=== PATIENT | female | born 1975 | race Hispanic/Latino ===

== ENCOUNTER → 2024-06-11 | Day surgery (SDC) | payer OTHER ==
[~2024-06-11] MED LIST: ACETAMINOPHEN 1000 MG/100 ML 100 ML IV ONE; ALENDRONATE SOD70 MG PO; CELEBREX200 MG PO; CIMZIA400 MG IM; COREG3.125 MG PO; CYMBALTA30 MG PO; DEXAMETHASONE SOD PHOS INJ 4 MG/ML SDV ONE; EPINEPHRINE HCL 1:1000 1ML 1 MG/ML AMP ONE; FAMOTIDINE 20 MG/2 ML VIAL IV ONE; FENTANYL CITRATE/PF 100MCG/2 ML INJ ONE; FOLIC ACID0.4 MG PO; LIDOCAINE 1% W/EPINEPHRINE 20 ML VIAL ONE; LIDOCAINE HCL 2% LOCAL INJ 5 ML SDV VIAL INJ ONE; LYRICA150 MG PO; MIDAZOLAM HCL 2 MG/2 ML VIAL ONE; ONDANSETRON HCL INJ 2MG/ML 2ML 2 MG/ML VIAL ONE; PANTOPRAZOLE SO40 MG PO; PRAVASTATIN SOD40 MG PO; PREVASTATIN PO; PROPOFOL IV EMULSION 10 MG/ML 20 ML VIAL ONE; ROCURONIUM BROMIDE 1 ML IV ONE; ROPINIROLE HCL0.5 MG PO; TRELEGY ELLIPT1 EACH INH; VITAMIN B COMP1 EAC5 PO; VITAMIN D250 MCG PO; WOMENS PROBIOTIC PO; [UNRECOGNIZED DRUG - OTHER] PO
[2024-06-11 09:18] LABS: BASOPHILS % 0.2 % (0.0-1.0); EOSINOPHILS % 0.4 % (0.0-6.0); HEMATOCRIT 41.6 % (34.2-44.1); HEMOGLOBIN 13.8 g/dL (12.0-16.0); LYMPHOCYTES # (AUTO) 2.2 (1.0-3.2); LYMPHOCYTES % 21.2 % (18.0-39.1); MEAN CORPUSCULAR HEMOGLOBIN 30.9 pg (28-32); MEAN CORPUSCULAR HGB CONC 33.2 g/dL (31-35); MEAN CORPUSCULAR VOLUME 93.3 fL (81-99); MONOCYTES # (AUTO) 0.7 (0.2-0.8); MONOCYTES % 6.5 % (4.4-11.3); NEUTROPHILS # (AUTO) 7.4 (2.1-6.9); NEUTROPHILS % 71.3 % (38.7-80.0); PLATELET COUNT 327 x10e3/uL (140-360); RED BLOOD COUNT 4.46 x10e6/uL (3.6-5.1); RED CELL DISTRIBUTION WIDTH 14.3 % (11.7-14.4); WHITE BLOOD COUNT 10.32 x10e3/uL (4.8-10.8)
[2024-06-11] MEDS: LACTATED RINGER'S 1,000 ML ONE (09:51)
[2024-06-11 10:16] LABS: ANION GAP 13.7 mmol/L (8-16); CALCIUM 9.5 mg/dL (8.4-10.2); CREATININE, SERUM 0.71 mg/dL (0.57-1.11); POTASSIUM 3.7 mmol/L (3.5-5.1)
[2024-06-11] MEDS: FENTANYL CITRATE/PF 100MCG/2 ML INJ ONE (13:24)
[2024-06-11 14:15] VITALS: BP 112/70; PULSE 63; RESP 16; O2SAT 99
== END | disposition home or self-care (01) ==
LOC: OR 08:43
PROVIDERS: ATTEND Otolaryngology Otolaryngology/Facial Plastic Surgery
DX: J32.0 Chronic maxillary sinusitis (principal); J34.89 Other specified disorders of nose and nasal sinuses; J34.2 Deviated nasal septum; J44.9 Chronic obstructive pulmonary disease, unspecified; D64.9 Anemia, unspecified; K21.9 Gastro-esophageal reflux disease without esophagitis; E78.5 Hyperlipidemia, unspecified; L40.50 Arthropathic psoriasis, unspecified; Z72.0 Tobacco use; Z88.1 Allergy status to other antibiotic agents; Z79.899 Other long term (current) drug therapy
CPT/HCPCS: 30520; 31267; 36415; 71046; 80048; 85025; 88112; 88304; 88305; 88311; 93005; J0131; J0171; J1100; J2003; J2250; J2405; J2704; J3010; J7121; 88300

== ENCOUNTER → 2025-05-06 | Day surgery (SDC) | payer OTHER ==
[~2025-05-06] MED LIST changes: -EPINEPHRINE HCL 1:1000 1ML 1 MG/ML AMP ONE; -FAMOTIDINE 20 MG/2 ML VIAL IV ONE; -LIDOCAINE 1% W/EPINEPHRINE 20 ML VIAL ONE; -ROCURONIUM BROMIDE 1 ML IV ONE
[2025-05-06] MEDS: LACTATED RINGER'S 1,000 ML ONE (11:57)
[2025-05-06] MEDS: CEFAZOLIN SODIUM 0 GM ONE (11:57)
[2025-05-06] MEDS: CEFAZOLIN SODIUM 2 GM ONE (11:58)
[2025-05-06 13:23] VITALS: TEMP 97.2
[2025-05-06] MEDS: FENTANYL CITRATE/PF 100MCG/2 ML INJ ONE (13:52)
[2025-05-06 14:30] VITALS: BP 123/71; PULSE 47; RESP 18; O2SAT 97
== END | disposition home or self-care (01) ==
LOC: OR 10:22
PROVIDERS: ATTEND Podiatrist Foot & Ankle Surgery
DX: L72.8 Other follicular cysts of the skin and subcutaneous tissue (principal); G57.82 Other specified mononeuropathies of left lower limb; J43.9 Emphysema, unspecified; Z87.891 Personal history of nicotine dependence; R73.03 Prediabetes; K21.9 Gastro-esophageal reflux disease without esophagitis; K58.9 Irritable bowel syndrome, unspecified; M85.80 Other specified disorders of bone density and structure, unspecified site; L40.50 Arthropathic psoriasis, unspecified; Z79.83 Long term (current) use of bisphosphonates; Z79.1 Long term (current) use of non-steroidal anti-inflammatories (NSAID); Z79.51 Long term (current) use of inhaled steroids; Z79.899 Other long term (current) drug therapy
CPT/HCPCS: 11423; 64704; 88304; J0131; J1100; J2003; J2250; J2405; J2704; J3010; J7121